=== PATIENT | female | born 1980 | race Caucasian/White ===

== ENCOUNTER 2016-09-23 18:18 | Emergency (ER) | payer OTHER ==
[2016-09-23] MEDS ORDERED: ONDANSETRON 4MG/2ML VIAL (J2405) As Ordered ONE (20:22)
[2016-09-23] MEDS ORDERED: MORPHINE 4 MG/ML 1ML SYRINGE As Ordered ONE (20:22)
[2016-09-23 20:31] LABS: BASO % 0.4 % (0.0-1.0); EOS # 0.4 K/mm3 (0.0-0.50); EOS % 3.6 % (0.0-3.0); LARGE UNSTAINED CELL # 0.2 K/mm3 (0.0-0.4); LARGE UNSTAINED CELL % 1.8 % (0.0-4.0); LYMPH # 2.5 K/mm3 (1.5-4.5); LYMPH % 25.4 % (24.0-44.0); MEAN CORPUSCULAR HEMOGLOBIN 29.6 pg (27.0-33.0); MEAN CORPUSCULAR HGB CONC 34.1 g/dl (32.0-36.5); MEAN CORPUSCULAR VOLUME 86.6 fl (80.0-96.0); MONO # 0.5 K/mm3 (0.0-0.8); MONO % 4.9 % (0.0-5.0); NEUTROPHILS # 6.3 K/mm3 (1.8-7.7); PLATELET COUNT, AUTOMATED 193 k/mm3 (150-450); RED CELL DISTRIBUTION WIDTH 12.2 % (11.5-14.5); WHITE BLOOD COUNT 9.8 K/mm3 (4.0-10.0)
[2016-09-23] MEDS ORDERED: ISOVUE-370 76% 100ML VIAL (Q9967) As Ordered ONE (20:45)
[2016-09-23 20:49] LABS: ANION GAP 8 MEQ/L (8-16); BLOOD UREA NITROGEN 11 MG/DL (7-18); CALCIUM LEVEL 8.5 MG/DL (8.5-10.1); CARBON DIOXIDE LEVEL 27 MEQ/L (21-32); CHLORIDE LEVEL 106 MEQ/L (98-107); CREATININE FOR GFR 0.67 MG/DL (0.55-1.02); GLOMERULAR FILTRATION RATE > 60.0 (>60); GLUCOSE, FASTING 97 MG/DL (70-105); POTASSIUM SERUM 3.8 MEQ/L (3.5-5.1); SODIUM LEVEL 141 MEQ/L (136-145)
[2016-09-23 20:59] LABS: CALCIUM OXALATE CRYSTALS MODERATE
[2016-09-23] MEDS ORDERED: NORCO 5/325MG TABLET (BULK) As Ordered ONE (23:35)
--- NOTE | 2016-09-23 23:44 | EDDOCDS ---
Physician Documentation [facility] Name: Malini Javier Age: 35 yrs Sex: Female : 1980 Arrival Date: 09/23/2016 Time: 18:18 Bed I3 / M3 Private MD: CAIN Santana Disposition: 09/23/16 23:31 Discharged to Home/Self Care. Impression: Contusion of thorax, Contusion of abdominal wall, Contusion of right thigh. - Condition is Stable. - Discharge Instructions: Contusion. - Prescriptions for Ibuprofen 600 mg Oral Tablet - take 1 tablet by ORAL route every 6 hours As needed take with food; 30 tablet. Lee 5- 325 mg Oral Tablet - take 1 tablet by ORAL route every 6 hours As needed MDD: 4 tabs; 16 tablet. Robaxin 500 mg Oral Tablet - take 2 tablet by ORAL route every 6 hours As needed; 40 tablet. - Work Release Form - 5 day, Medication Reconciliation, Local Pharmacy Hours form. - Follow up: CAIN Santana; When: 1 - 2 days; Reason: Recheck today's complaints, Continuance of care. - Problem is new. - Symptoms have improved. - Notes: PLEASE RETURN TO THE ER IF THE SYMPTOMS WORSEN OR BECOME CONCERNING, FOLLOW UP WITH YOUR DOCTOR IN 1-2 DAYS, USE MEDICATIONS INSTRUCTED Historical: - Allergies: no known allergies; - Home Meds: 1. none - PMHx: Supraventricular Tachycardia; - PSHx: internal defibrillator; right ankle surgery; Ureteral Stents; Uereteral stone extractions, ESWL; - Social history: Smoking status: Patient states was never smoker of tobacco. No barriers to communication noted, The patient speaks fluent Prydeinig. - Family history: Not pertinent. - : The pt / caregiver states he / she is not on anticoagulants. Home medication list is obtained from the patient. - Exposure Risk Screening:: None identified. 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 10 in. (177.80 cm) (R); 21:16 BP 118 / 73; Pulse 84; Resp 18; Temp 97.8; Pulse Ox 100% ; Pain 1/10; jlm 23:36 BP 115 / 68; Pulse 88; Resp 18; Temp 98.4; Pulse Ox 99% ; Pain 2/10; jlm 18:20 Body Mass Index 34.01 (107.50 kg, 177.80 cm) rs3 MDM: 20:10 IV Saline Lock ordered. ck7 20:11 morphine 4 mg IVP once ordered. ck7 20:11 Ondansetron 4 mg IVP once ordered. ck7 20:11 NS 0.9% 1000 ml IV at bolus once ordered. ck7 20:12 CBC with Diff Ordered. EDMS 20:12 MED Profile Ordered. EDMS 20:12 UA Ordered. EDMS 20:12 CT Chest With Contrast Ordered. EDMS 20:12 CT ABD & PELVIS: IV Contrast Only Ordered. EDMS 20:13 Femur Ordered. EDMS 20:22 Financial registration complete. zo 20:26 [facility] Payment Agreement was scanned into [employer] and attached to record. zo 20:47 CBC with Diff Reviewed. ck7 20:52 MED Profile Reviewed. ck7 21:22 UA Reviewed. ck7 23:32 HYDROcodone-acetaminophen 4 pack- 5 mg-325 mg 1 packets PO Per package directions; ck7 Dispense with patient. 1 po q4h prn for pain ordered. Administered Medications: 20:34 Drug: NS 0.9% 1000 ml [sodium chloride 0.9 % intravenous solution] Route: IV; Rate: ms2 bolus; Site: left antecubital; 23:43 Follow up: IV Status: Completed infusion slm 20:45 Drug: morphine 4 mg [morphine 4 mg/mL intravenous cartridge (1 mL)] Route: IVP; Site: ms18 left antecubital; 20:45 Drug: Ondansetron 4 mg Route: IVP; Site: left antecubital; ms18 23:42 Drug: HYDROcodone-acetaminophen 4 pack- 1 packets [hydrocodone 5 mg-acetaminophen 325 slm mg tablet (1 tabs)] {Co-Signature: lf1 (Lakeshia Stein RN).} Route: PO; Signatures: Dispatcher MedHost EDMS Connie Carrillo Rosemary, RN RN rs3 Jose Santana, RPA-C RPA-Cck7 Cecilia Barber LPN ANNEALING FURNACE OPERATOR slm Soham Oconnor RN ms2 Pavithra Vang RN ms18 Lakeshia Stein RN lf1 The chart was reviewed and I authenticate all verbal orders and agree with the evaluation and treatment provided.Attachments: 20:26 COUNT INCLUDES THE [facility] Payment Agreement zo MTDD
--- NOTE | 2016-09-23 23:44 | EDDOCDS ---
Nurse's Notes [facility] Name: Malini Javier Age: 35 yrs Sex: Female : 1980 Arrival Date: 09/23/2016 Time: 18:18 Bed I3 / M3 Private MD: CAIN Santana Diagnosis: Contusion of thorax;Contusion of abdominal wall;Contusion of right thigh Presentation: 09/23 18:22 Presenting complaint: Patient states: got kicked by horse right side. reports of pain rs3 on right flank and right leg. Adult Sepsis Screening: The patient does not have new or worsening altered mentation. Patient's respiratory rate is less than 22. Systolic blood pressure is greater than 100. Patient has a qSOFA score of 0- Negative Sepsis Screen. Suicide/Homicide risk assessment- the patient denies having any suicidal and/or homicidal ideations and does not present with any other emotional, behavioral or mental health complaints. Status: Patient is not a director financial services or dependent. Transition of care: patient was not received from another setting of care. 18:22 Acuity: SADIQ Level 4 rs3 18:22 Method Of Arrival: Walkin/Carried/Asstd rs3 Triage Assessment: 18:24 General: Appears in no apparent distress. Pain: Location: posterior aspect of right rs3 lateral abdomen and anterior aspect of right lateral abdomen. Pt Declines HIV testing. 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 none - PMHx: Supraventricular Tachycardia; - PSHx: internal defibrillator; right ankle surgery; Ureteral Stents; Uereteral stone extractions, ESWL; - Social history: Smoking status: Patient states was never smoker of tobacco. No barriers to communication noted, The patient speaks fluent Sinhala. - Family history: Not pertinent. - : The pt / caregiver states he / she is not on anticoagulants. Home medication list is obtained from the patient. - Exposure Risk Screening:: None identified. Screenin:01 Screening information is obtained from the patient. Fall risk: No risks identified. ms2 Assistance ADL's: requires no assistance with activities of daily living. Abuse/DV Screen: The patient / caregiver reports he/she is: not in a situation that causes fear, pain or injury. Nutritional screening: No deficits noted. Advance Directives: Currently, there is no health care proxy. There is no active DNR order. There is no living will. There is no Power of Butter Liquefier. Advance directive information has not previously been placed in an [facility] medical record. Further advance directive information is declined. home support is adequate. Assessment: 20:10 Adult Sepsis Screening: Patient's respiratory rate is less than 22. Systolic blood ms2 pressure is greater than 100. Patient has a qSOFA score of 0- Negative Sepsis Screen. General: Appears in no apparent distress. Neurological: Level of Consciousness is awake, alert, obeys commands. Respiratory: No deficits noted. Airway is patent Respiratory effort is even, unlabored, Respiratory pattern is regular, symmetrical. GI: Abdomen is non- distended obese. Derm: Skin is pink, warm & dry. Musculoskeletal: Range of motion intact in all extremities. 22:01 Adult Sepsis Screening: The patient does not have new or worsening altered mentation. ms2 Patient's respiratory rate is less than 22. Systolic blood pressure is greater than 100. Patient has a qSOFA score of 0- Negative Sepsis Screen. General: Appears. Pain: Pain currently is 1 out of 10 on a pain scale. Neurological: No deficits noted. Respiratory: No deficits noted. Derm: Skin is pink, warm & dry. 23:42 Reassessment: Patient appears in no apparent distress at this time. Patient states slm symptoms have improved. Vital Signs: 18:20 BP 143 / 77; Pulse 101; Resp 18 S; Temp 99(T); Pulse Ox 100% on R/A; Weight 107.5 kg rs3 (R); Height 5 ft. 10 in. (177.80 cm) (R); 21:16 BP 118 / 73; Pulse 84; Resp 18; Temp 97.8; Pulse Ox 100% ; Pain 1/10; jlm 23:36 BP 115 / 68; Pulse 88; Resp 18; Temp 98.4; Pulse Ox 99% ; Pain 2/10; jlm 18:20 Body Mass Index 34.01 (107.50 kg, 177.80 cm) rs3 Vitals: 18:20 Log In Time: September 23, 2016 at 18:18. dd6 ED Course: 18:19 Patient visited by Logan Herndon PCA. dd6 18:19 CAIN Santana is Private Physician. dd6 18:19 Patient moved to Waiting dd6 18:21 Patient moved to Pre RCE dd6 18:24 Triage Initiated rs3 19:32 Patient moved to Triage 1 ar3 20:03 Jose Santana RPA-C is PHCP. ck7 20:03 Nikko Fairbanks DO is Attending Physician. ck7 20:03 Patient visited by Jose Santana RPA-C. ck7 20:08 Patient moved to I3 / M3 ar3 20:10 Inserted saline lock: 20 gauge in left antecubital area and blood collected. ms2 20:24 MED Profile Sent. ms2 20:24 CBC with Diff Sent. ms2 20:26 [facility] Payment Agreement was scanned into [employer] and attached to record. zo 20:29 Patient name changed from Malini\S\\S\Esplin\S\ to Malini\S\ \S\Esplin. EDMS 20:38 Patient visited by Jose Santana RPA-C. ck7 20:45 UA Sent. ms18 21:16 Patient visited by Chloe Brennan, Director Emergency. jlm 21:59 Patient visited by Jose Santana RPA-C. ck7 22:02 The patient / caregiver is instructed regarding the plan of care and ED course. ms2 22:02 IV is intact, is free of redness or swelling. No procedures done that require ms2 assistance. 22:31 Patient visited by Chloe Brennan Director Emergency. jlm 22:31 Warm blanket given. jlm 23:02 Patient visited by Jose Santana RPA-C. ck7 23:28 CAIN Santana is Referral Physician. ck7 23:36 Patient visited by Chloe Brennan Director Emergency. jlm 23:41 Cecilia Barber LPN is Primary Nurse. slm 23:43 Discontinued lock intact, bleeding controlled, pressure dressing applied, No slm redness/swelling at site. Administered Medications: 20:34 Drug: NS 0.9% 1000 ml [sodium chloride 0.9 % intravenous solution] Route: IV; Rate: ms2 bolus; Site: left antecubital; 23:43 Follow up: IV Status: Completed infusion slm 20:45 Drug: morphine 4 mg [morphine 4 mg/mL intravenous cartridge (1 mL)] Route: IVP; Site: ms18 left antecubital; 20:45 Drug: Ondansetron 4 mg Route: IVP; Site: left antecubital; ms18 23:42 Drug: HYDROcodone-acetaminophen 4 pack- 1 packets [hydrocodone 5 mg-acetaminophen 325 slm mg tablet (1 tabs)] {Co-Signature: lf1 (Lakeshia Stein RN).} Route: PO; Intake: 22:01 IV: 1000.00ml (NS); Total: 1000.00ml. ms2 Order Results: Lab Order: CBC with Diff; SPEC'M 09/23/16 20:20 Test: WHITE BLOOD COUNT; Value: 9.8; Range: 4.0-10.0; Units: K/mm3; Status: F Test: RED BLOOD COUNT; Value: 4.82; Range: 4.00-5.40; Units: M/mm3; Status: F Test: HEMOGLOBIN; Value: 14.2; Range: 12.0-16.0; Units: g/dl; Status: F Test: HEMATOCRIT; Value: 41.7; Range: 36.0-47.0; Units: %; Status: F Test: MEAN CORPUSCULAR VOLUME; Value: 86.6; Range: 80.0-96.0; Units: fl; Status: F Test: MEAN CORPUSCULAR HEMOGLOBIN; Value: 29.6; Range: 27.0-33.0; Units: pg; Status: F Test: MEAN CORPUSCULAR HGB CONC; Value: 34.1; Range: 32.0-36.5; Units: g/dl; Status: F Test: RED CELL DISTRIBUTION WIDTH; Value: 12.2; Range: 11.5-14.5; Units: %; Status: F Test: PLATELET COUNT, AUTOMATED; Value: 193; Range: 150-450; Units: k/mm3; Status: F Test: NEUTROPHILS %; Value: 64.0; Range: 36.0-66.0; Units: %; Status: F Test: LYMPH %; Value: 25.4; Range: 24.0-44.0; Units: %; Status: F Test: MONO %; Value: 4.9; Range: 0.0-5.0; Units: %; Status: F Test: EOS %; Value: 3.6; Range: 0.0-3.0; Abnormal: Above high normal; Units: %; Status: F Test: BASO %; Value: 0.4; Range: 0.0-1.0; Units: %; Status: F Test: LARGE UNSTAINED CELL %; Value: 1.8; Range: 0.0-4.0; Units: %; Status: F Test: NEUTROPHILS #; Value: 6.3; Range: 1.8-7.7; Units: K/mm3; Status: F Test: LYMPH #; Value: 2.5; Range: 1.5-4.5; Units: K/mm3; Status: F Test: MONO #; Value: 0.5; Range: 0.0-0.8; Units: K/mm3; Status: F Test: EOS #; Value: 0.4; Range: 0.0-0.50; Units: K/mm3; Status: F Test: BASO #; Value: 0.0; Range: 0.0-0.2; Units: K/mm3; Status: F Test: LARGE UNSTAINED CELL #; Value: 0.2; Range: 0.0-0.4; Units: K/mm3; Status: F Lab Order: MED Profile; SPEC'M 09/23/16 20:20 Test: GLUCOSE, FASTING; Value: 97; Range: 70-105; Units: MG/DL; Status: F Test: BLOOD UREA NITROGEN; Value: 11; Range: 7-18; Units: MG/DL; Status: F Test: CREATININE FOR GFR; Value: 0.67; Range: 0.55-1.02; Units: MG/DL; Status: F Test: GLOMERULAR FILTRATION RATE; Value: > 60.0; Range: >60; Status: F Test: SODIUM LEVEL; Value: 141; Range: 136-145; Units: MEQ/L; Status: F Test: POTASSIUM SERUM; Value: 3.8; Range: 3.5-5.1; Units: MEQ/L; Status: F Test: CHLORIDE LEVEL; Value: 106; Range: 98-107; Units: MEQ/L; Status: F Test: CARBON DIOXIDE LEVEL; Value: 27; Range: 21-32; Units: MEQ/L; Status: F Test: ANION GAP; Value: 8; Range: 8-16; Units: MEQ/L; Status: F Test: CALCIUM LEVEL; Value: 8.5; Range: 8.5-10.1; Units: MG/DL; Status: F Test Note: ; Units are mL/min/1.73 m2 Chronic Kidney Disease Staging per NKF: Stage I & II GFR >=60 Normal to Mildly Decreased Stage III GFR 30-59 Moderately Decreased Stage IV GFR 15-29 Severely Decreased Stage V GFR <15 Very Little GFR Left ESRD GFR <15 on ROUSTABOUT SUPERVISOR Lab Order: UA; SPEC'M 09/23/16 20:21 Test: APPEARANCE, URINE; Value: CLEAR; Range: CLEAR; Status: F Test: COLOR, URINE; Value: YELLOW; Range: YELLOW; Status: F Test: PH,URINE; Value: 5.0; Range: 5.0-9.0; Units: UNITS; Status: F Test: SPECIFIC GRAVITY URINE AUTO; Value: 1.026; Range: 1.002-1.035; Status: F Test: PROTEIN, URINE AUTO; Value: NEGATIVE; Range: NEGATIVE; Units: mg/dL; Status: F Test: GLUCOSE, URINE (UA) AUTO; Value: NEGATIVE; Range: NEGATIVE; Units: mg/dL; Status: F Test: KETONE, URINE AUTO; Value: TRACE; Range: NEGATIVE; Abnormal: Above high normal; Units: mg/dL; Status: F Test: UROBILINOGEN, URINE AUTO; Value: 0.2; Range: 0.0-2.0; Units: mg/dL; Status: F Test: BILIRUBIN, URINE AUTO; Value: NEGATIVE; Range: NEGATIVE; Status: F Test: NITRITE, URINE AUTO; Value: NEGATIVE; Range: NEGATIVE; Status: F Test: LEUKOCYTE ESTERASE, URINE AUTO; Value: NEGATIVE; Range: NEGATIVE; Status: F Test: BLOOD, URINE BLOOD; Value: NEGATIVE; Range: NEGATIVE; Status: F Test: WBC, URINE AUTO; Value: 2; Range: 0-3; Units: /HPF; Status: F Test: RBC, URINE AUTO; Value: 3; Range: 0-3; Units: /HPF; Status: F Test: BACTERIA, URINE AUTO; Value: 1+; Range: NEGATIVE; Abnormal: Above high normal; Status: F Test: SQUAMOUS EPITHELIAL CELL UR AU; Value: 4; Range: 0-6; Units: /HPF; Status: F Test: MUCUS, URINE; Value: SMALL; Range: NEGATIVE; Status: F Test: HYALINE CAST, URINE AUTO; Value: 0; Range: 0-1; Units: /LPF; Status: F Test: CALCIUM OXALATE CRYSTALS; Value: MODERATE; Range: NONE; Status: F Outcome: 23:31 Discharge ordered by Provider. ck7 23:41 Discharge Assessment: Patient awake, alert and oriented x 3. No cognitive and/or slm functional deficits noted. Patient verbalized understanding of disposition instructions. Patient awake and alert. patient administered narcotics - yes. Pt provided with safe discharge. The following High Risk Discharge criteria are identified: None. Discharged to home ambulatory. Condition: good Condition: improved. Discharge instructions given to patient, Instructed on discharge instructions, follow up and referral plans. medication usage, no driving heavy equipment, Demonstrated understanding of instructions, medications, Pt was receptive of discharge instructions/ teaching. Prescriptions given X 3. CT Study completed. Property :Personal belongings accompany Pt. 23:43 Patient left the ED. slm Signatures: Dispatcher MedHost EDMS Soham Oconnor RN RN ms2 Connie Carrillo Daniell, FACTORY HELPER FACTORY HELPER dd6 Stefani Leung RN RN rs3 Maria Teresa Del Castillo, FACTORY HELPER FACTORY HELPER ar3 Jose Santana, RPA-C RPA-Cck7 Cecilia Barber,MANAGEMENT SPECIALIST MANAGEMENT SPECIALIST slm Chloe Brennan, Director Emergency Unit Pavithra Carpio RN RN ms18 Lakeshia Stein RN lf1 Corrections: (The following items were deleted from the chart) 18:26 18:20 BP 143 / 77; Pulse 101bpm; Resp 18bpm; Spontaneous; Pulse Ox 100% RA; 107.5 kg rs3 Reported; Height 5 ft. 10 in. Reported; BMI: 34.0; dd6 MTDD
--- NOTE | 2016-09-24 02:41 | REP ---
Clinical: Deformity and swelling. Technique: AP and lateral views of the right femur. Findings: Age-related changes noted at the hip and knee joint. No acute fracture or dislocation. No subcutaneous emphysema or radiodense foreign body. Impression: Age-related changes. No acute fracture or dislocation. Signed by Franco Sky MD 09/24/2016 02:33 A
--- NOTE | 2016-09-24 07:58 | REPUSA ---
CLINICAL HISTORY: Trauma. TECHNIQUE: Multiple axial CT images were obtained through the abdomen and pelvis after administratio n of intravenous contrast material. Oral contrast was not administered. COMMENTS: The liver is of uniform attenuation without mass or defect. There is no intra or extrahepatic biliar y ductal dilatation. The spleen is normal. The gallbladder is within normal limits. The pancreas i s of normal contour and attenuation characteristics. There is no evidence of adrenal mass. Both kidneys demonstrate prompt and equal nephrograms. The kidneys are normal in size, shape and con figuration. There is no evidence of renal or ureteral mass. No renal or ureteral calculi are identi fied. There is no hydroureter or hydronephrosis. No evidence for appendicitis. Circumferential wall thickening is noted involving duodenum as well as loops of jejunum and ileum compatible with enteritis. No evidence for small or large bowel obstruct ion. There is no evidence of abdominal ascites or lymphadenopathy. There is no evidence of intrinsic or extrinsic bladder mass. There is no pelvic ascites or lymphaden opathy. IUD is in place. A 2 cm left ovarian cyst is seen. The right ovary is unremarkable. Images of the lung bases show no evidence of pleural or parenchymal mass. There are no pleural effus ions. No fracture is noted. There is grade 1 anterolisthesis of L5 over S1 due to bilateral spondyl olysis. Consider correlation with dedicated CT or MRI on a routine basis. No acute fracture is seen . Small hiatal hernia is seen. The stomach is distended. IMPRESSION: 1. Circumferential wall thickening is noted involving duodenum as well as loops of jejunum and ileum compatible with enteritis. 2. Small hiatal hernia is seen. 3. A 2 cm left ovarian cyst is seen. 4. There is grade 1 anterolisthesis of L5 over S1 due to bilateral spondylolysis. Thank you for your kind referral of this patient. We appreciate the opportunity to participate in thi s patient's care.
--- NOTE | 2016-09-26 00:44 | EDDOCDS ---
Physician Documentation [facility] Name: Malini Javier Age: 35 yrs Sex: Female : 1980 Arrival Date: 09/23/2016 Time: 18:18 Bed I3 / M3 Private MD: CAIN Santana Disposition: 09/23/16 23:31 Discharged to Home/Self Care. Impression: Contusion of thorax, Contusion of abdominal wall, Contusion of right thigh. - Condition is Stable. - Discharge Instructions: Contusion. - Prescriptions for Ibuprofen 600 mg Oral Tablet - take 1 tablet by ORAL route every 6 hours As needed take with food; 30 tablet. Harrell 5- 325 mg Oral Tablet - take 1 tablet by ORAL route every 6 hours As needed MDD: 4 tabs; 16 tablet. Robaxin 500 mg Oral Tablet - take 2 tablet by ORAL route every 6 hours As needed; 40 tablet. - Work Release Form - 5 day, Medication Reconciliation, Local Pharmacy Hours form. - Follow up: CAIN Santana; When: 1 - 2 days; Reason: Recheck today's complaints, Continuance of care. - Problem is new. - Symptoms have improved. - Notes: PLEASE RETURN TO THE ER IF THE SYMPTOMS WORSEN OR BECOME CONCERNING, FOLLOW UP WITH YOUR DOCTOR IN 1-2 DAYS, USE MEDICATIONS INSTRUCTED Historical: - Allergies: no known allergies; - Home Meds: 1. none - PMHx: Supraventricular Tachycardia; - PSHx: internal defibrillator; right ankle surgery; Ureteral Stents; Uereteral stone extractions, ESWL; - Social history: Smoking status: Patient states was never smoker of tobacco. No barriers to communication noted, The patient speaks fluent British. - Family history: Not pertinent. - : The pt / caregiver states he / she is not on anticoagulants. Home medication list is obtained from the patient. - Exposure Risk Screening:: None identified. 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 10 in. (177.80 cm) (R); 21:16 BP 118 / 73; Pulse 84; Resp 18; Temp 97.8; Pulse Ox 100% ; Pain 1/10; jlm 23:36 BP 115 / 68; Pulse 88; Resp 18; Temp 98.4; Pulse Ox 99% ; Pain 2/10; jlm 18:20 Body Mass Index 34.01 (107.50 kg, 177.80 cm) rs3 MDM: 20:10 IV Saline Lock ordered. ck7 20:11 morphine 4 mg IVP once ordered. ck7 20:11 Ondansetron 4 mg IVP once ordered. ck7 20:11 NS 0.9% 1000 ml IV at bolus once ordered. ck7 20:12 CBC with Diff Ordered. EDMS 20:12 MED Profile Ordered. EDMS 20:12 UA Ordered. EDMS 20:12 CT Chest With Contrast Ordered. EDMS 20:12 CT ABD & PELVIS: IV Contrast Only Ordered. EDMS 20:13 Femur Ordered. EDMS 20:22 Financial registration complete. zo 20:26 [facility] Payment Agreement was scanned into [employer] and attached to record. zo 20:47 CBC with Diff Reviewed. ck7 20:52 MED Profile Reviewed. ck7 21:22 UA Reviewed. ck7 23:32 HYDROcodone-acetaminophen 4 pack- 5 mg-325 mg 1 packets PO Per package directions; ck7 Dispense with patient. 1 po q4h prn for pain ordered. 09/24 11:27 T-Sheet-- Draft Copy was scanned into [employer] and attached to record. gb 09/25 20:20 ED course: ft drum fp faxed formal report of ct abd/p for fu mlg. ml Administered Medications: 09/23 20:34 Drug: NS 0.9% 1000 ml [sodium chloride 0.9 % intravenous solution] Route: IV; Rate: ms2 bolus; Site: left antecubital; 23:43 Follow up: IV Status: Completed infusion slm 20:45 Drug: morphine 4 mg [morphine 4 mg/mL intravenous cartridge (1 mL)] Route: IVP; Site: ms18 left antecubital; 20:45 Drug: Ondansetron 4 mg Route: IVP; Site: left antecubital; ms18 23:42 Drug: HYDROcodone-acetaminophen 4 pack- 1 packets [hydrocodone 5 mg-acetaminophen 325 slm mg tablet (1 tabs)] {Co-Signature: lf1 (Lakeshia Stein RN).} Route: PO; Signatures: Dispatcher MedHost EDMS Nina Sanchez MD MD ml Barnhardt, Gloria, Connie De La Cruz Rosemary,RN RN rs3 Jose Santana, RPA-C RPA-Cck7 Cecilia Barber LPN LPN slm Sobkiewicz, Michele RN ms2 Pavithra Vang RN ms18 Lakeshia Stein RN lf1 The chart was reviewed and I authenticate all verbal orders and agree with the evaluation and treatment provided.Attachments: 20:26 [facility] Payment Agreement zo 09/24 11:27 T-Sheet-- Draft Copy gb Chart Complete MTDD
--- NOTE | 2016-09-26 00:44 | EDDOCDS ---
Nurse's Notes [facility] Name: Malini Javier Age: 35 yrs Sex: Female : 1980 Arrival Date: 09/23/2016 Time: 18:18 Bed I3 / M3 Private MD: CAIN Santana Diagnosis: Contusion of thorax;Contusion of abdominal wall;Contusion of right thigh Presentation: 09/23 18:22 Presenting complaint: Patient states: got kicked by horse right side. reports of pain rs3 on right flank and right leg. Adult Sepsis Screening: The patient does not have new or worsening altered mentation. Patient's respiratory rate is less than 22. Systolic blood pressure is greater than 100. Patient has a qSOFA score of 0- Negative Sepsis Screen. Suicide/Homicide risk assessment- the patient denies having any suicidal and/or homicidal ideations and does not present with any other emotional, behavioral or mental health complaints. Status: Patient is not a extension service specialist in charge or dependent. Transition of care: patient was not received from another setting of care. 18:22 Acuity: SADIQ Level 4 rs3 18:22 Method Of Arrival: Walkin/Carried/Asstd rs3 Triage Assessment: 18:24 General: Appears in no apparent distress. Pain: Location: posterior aspect of right rs3 lateral abdomen and anterior aspect of right lateral abdomen. Pt Declines HIV testing. [employer] WE[employer]HER: 18:24 LMP N/A - control method rs3 Historical: - Allergies: no known allergies; - Home Meds: 1. none - PMHx: Supraventricular Tachycardia; - PSHx: internal defibrillator; right ankle surgery; Ureteral Stents; Uereteral stone extractions, ESWL; - Social history: Smoking status: Patient states was never smoker of tobacco. No barriers to communication noted, The patient speaks fluent Irish. - Family history: Not pertinent. - : The pt / caregiver states he / she is not on anticoagulants. Home medication list is obtained from the patient. - Exposure Risk Screening:: None identified. Screenin:01 Screening information is obtained from the patient. Fall risk: No risks identified. ms2 Assistance ADL's: requires no assistance with activities of daily living. Abuse/DV Screen: The patient / caregiver reports he/she is: not in a situation that causes fear, pain or injury. Nutritional screening: No deficits noted. Advance Directives: Currently, there is no health care proxy. There is no active DNR order. There is no living will. There is no Power of Solar Electric Installer. Advance directive information has not previously been placed in an [facility] medical record. Further advance directive information is declined. home support is adequate. Assessment: 20:10 Adult Sepsis Screening: Patient's respiratory rate is less than 22. Systolic blood ms2 pressure is greater than 100. Patient has a qSOFA score of 0- Negative Sepsis Screen. General: Appears in no apparent distress. Neurological: Level of Consciousness is awake, alert, obeys commands. Respiratory: No deficits noted. Airway is patent Respiratory effort is even, unlabored, Respiratory pattern is regular, symmetrical. GI: Abdomen is non- distended obese. Derm: Skin is pink, warm & dry. Musculoskeletal: Range of motion intact in all extremities. 22:01 Adult Sepsis Screening: The patient does not have new or worsening altered mentation. ms2 Patient's respiratory rate is less than 22. Systolic blood pressure is greater than 100. Patient has a qSOFA score of 0- Negative Sepsis Screen. General: Appears. Pain: Pain currently is 1 out of 10 on a pain scale. Neurological: No deficits noted. Respiratory: No deficits noted. Derm: Skin is pink, warm & dry. 23:42 Reassessment: Patient appears in no apparent distress at this time. Patient states slm symptoms have improved. Vital Signs: 18:20 BP 143 / 77; Pulse 101; Resp 18 S; Temp 99(T); Pulse Ox 100% on R/A; Weight 107.5 kg rs3 (R); Height 5 ft. 10 in. (177.80 cm) (R); 21:16 BP 118 / 73; Pulse 84; Resp 18; Temp 97.8; Pulse Ox 100% ; Pain 1/10; jlm 23:36 BP 115 / 68; Pulse 88; Resp 18; Temp 98.4; Pulse Ox 99% ; Pain 2/10; jlm 18:20 Body Mass Index 34.01 (107.50 kg, 177.80 cm) rs3 Vitals: 18:20 Log In Time: September 23, 2016 at 18:18. dd6 ED Course: 18:19 Patient visited by Logan Herndon PCA. dd6 18:19 CAIN Santana is Private Physician. dd6 18:19 Patient moved to Waiting dd6 18:21 Patient moved to Pre RCE dd6 18:24 Triage Initiated rs3 19:32 Patient moved to Triage 1 ar3 20:03 Jose Santana RPA-C is PHCP. ck7 20:03 Nikko Fairbanks DO is Attending Physician. ck7 20:03 Patient visited by Jose Satnana RPA-C. ck7 20:08 Patient moved to I3 / M3 ar3 20:10 Inserted saline lock: 20 gauge in left antecubital area and blood collected. ms2 20:24 MED Profile Sent. ms2 20:24 CBC with Diff Sent. ms2 20:26 [facility] [place] Agreement was scanned into [employer] and attached to record. zo 20:29 Patient name changed from Malini\S\\S\Esplin\S\ to Malini\S\ \S\Esplin. EDMS 20:38 Patient visited by Jose Santana RPA-C. ck7 20:45 UA Sent. ms18 21:16 Patient visited by Chloe Brennan, Carbon Capture Power Plant Operator. jlm 21:59 Patient visited by Jose Santana RPA-C. ck7 22:02 The patient / caregiver is instructed regarding the plan of care and ED course. ms2 22:02 IV is intact, is free of redness or swelling. No procedures done that require ms2 assistance. 22:31 Patient visited by Chloe Brennan Carbon Capture Power Plant Operator. jlm 22:31 Warm blanket given. jlm 23:02 Patient visited by Jose Santana RPA-C. ck7 23:28 EDUARDO Santana is Referral Physician. ck7 23:36 Patient visited by Chloe Brennan Carbon Capture Power Plant Operator. jlm 23:41 Cecilia Barber LPN is Primary Nurse. slm 23:43 Discontinued lock intact, bleeding controlled, pressure dressing applied, No slm redness/swelling at site. 09/24 02:48 Femur Returned. EDMS 08:30 CT Chest With Contrast Returned. EDMS 08:30 CT ABD & PELVIS: IV Contrast Only Returned. EDMS 11:27 T-Sheet-- Draft Copy was scanned into [employer] and attached to record. gb Administered Medications: 09/23 20:34 Drug: NS 0.9% 1000 ml [sodium chloride 0.9 % intravenous solution] Route: IV; Rate: ms2 bolus; Site: left antecubital; 23:43 Follow up: IV Status: Completed infusion slm 20:45 Drug: morphine 4 mg [morphine 4 mg/mL intravenous cartridge (1 mL)] Route: IVP; Site: ms18 left antecubital; 20:45 Drug: Ondansetron 4 mg Route: IVP; Site: left antecubital; ms18 23:42 Drug: HYDROcodone-acetaminophen 4 pack- 1 packets [hydrocodone 5 mg-acetaminophen 325 slm mg tablet (1 tabs)] {Co-Signature: lf1 (Lakeshia Stein RN).} Route: PO; Intake: 22:01 IV: 1000.00ml (NS); Total: 1000.00ml. ms2 Order Results: Lab Order: CBC with Diff; SPEC'M 09/23/16 20:20 Test: WHITE BLOOD COUNT; Value: 9.8; Range: 4.0-10.0; Units: K/mm3; Status: F Test: RED BLOOD COUNT; Value: 4.82; Range: 4.00-5.40; Units: M/mm3; Status: F Test: HEMOGLOBIN; Value: 14.2; Range: 12.0-16.0; Units: g/dl; Status: F Test: HEMATOCRIT; Value: 41.7; Range: 36.0-47.0; Units: %; Status: F Test: MEAN CORPUSCULAR VOLUME; Value: 86.6; Range: 80.0-96.0; Units: fl; Status: F Test: MEAN CORPUSCULAR HEMOGLOBIN; Value: 29.6; Range: 27.0-33.0; Units: pg; Status: F Test: MEAN CORPUSCULAR HGB CONC; Value: 34.1; Range: 32.0-36.5; Units: g/dl; Status: F Test: RED CELL DISTRIBUTION WIDTH; Value: 12.2; Range: 11.5-14.5; Units: %; Status: F Test: PLATELET COUNT, AUTOMATED; Value: 193; Range: 150-450; Units: k/mm3; Status: F Test: NEUTROPHILS %; Value: 64.0; Range: 36.0-66.0; Units: %; Status: F Test: LYMPH %; Value: 25.4; Range: 24.0-44.0; Units: %; Status: F Test: MONO %; Value: 4.9; Range: 0.0-5.0; Units: %; Status: F Test: EOS %; Value: 3.6; Range: 0.0-3.0; Abnormal: Above high normal; Units: %; Status: F Test: BASO %; Value: 0.4; Range: 0.0-1.0; Units: %; Status: F Test: LARGE UNSTAINED CELL %; Value: 1.8; Range: 0.0-4.0; Units: %; Status: F Test: NEUTROPHILS #; Value: 6.3; Range: 1.8-7.7; Units: K/mm3; Status: F Test: LYMPH #; Value: 2.5; Range: 1.5-4.5; Units: K/mm3; Status: F Test: MONO #; Value: 0.5; Range: 0.0-0.8; Units: K/mm3; Status: F Test: EOS #; Value: 0.4; Range: 0.0-0.50; Units: K/mm3; Status: F Test: BASO #; Value: 0.0; Range: 0.0-0.2; Units: K/mm3; Status: F Test: LARGE UNSTAINED CELL #; Value: 0.2; Range: 0.0-0.4; Units: K/mm3; Status: F Lab Order: MED Profile; SPEC'M 09/23/16 20:20 Test: GLUCOSE, FASTING; Value: 97; Range: 70-105; Units: MG/DL; Status: F Test: BLOOD UREA NITROGEN; Value: 11; Range: 7-18; Units: MG/DL; Status: F Test: CREATININE FOR GFR; Value: 0.67; Range: 0.55-1.02; Units: MG/DL; Status: F Test: GLOMERULAR FILTRATION RATE; Value: > 60.0; Range: >60; Status: F Test: SODIUM LEVEL; Value: 141; Range: 136-145; Units: MEQ/L; Status: F Test: POTASSIUM SERUM; Value: 3.8; Range: 3.5-5.1; Units: MEQ/L; Status: F Test: CHLORIDE LEVEL; Value: 106; Range: 98-107; Units: MEQ/L; Status: F Test: CARBON DIOXIDE LEVEL; Value: 27; Range: 21-32; Units: MEQ/L; Status: F Test: ANION GAP; Value: 8; Range: 8-16; Units: MEQ/L; Status: F Test: CALCIUM LEVEL; Value: 8.5; Range: 8.5-10.1; Units: MG/DL; Status: F Test Note: ; Units are mL/min/1.73 m2 Chronic Kidney Disease Staging per NKF: Stage I & II GFR >=60 Normal to Mildly Decreased Stage III GFR 30-59 Moderately Decreased Stage IV GFR 15-29 Severely Decreased Stage V GFR <15 Very Little GFR Left ESRD GFR <15 on NUTRITION AND DIETETICS INSTRUCTOR Lab Order: UA; SPEC'M 09/23/16 20:21 Test: APPEARANCE, URINE; Value: CLEAR; Range: CLEAR; Status: F Test: COLOR, URINE; Value: YELLOW; Range: YELLOW; Status: F Test: PH,URINE; Value: 5.0; Range: 5.0-9.0; Units: UNITS; Status: F Test: SPECIFIC GRAVITY URINE AUTO; Value: 1.026; Range: 1.002-1.035; Status: F Test: PROTEIN, URINE AUTO; Value: NEGATIVE; Range: NEGATIVE; Units: mg/dL; Status: F Test: GLUCOSE, URINE (UA) AUTO; Value: NEGATIVE; Range: NEGATIVE; Units: mg/dL; Status: F Test: KETONE, URINE AUTO; Value: TRACE; Range: NEGATIVE; Abnormal: Above high normal; Units: mg/dL; Status: F Test: UROBILINOGEN, URINE AUTO; Value: 0.2; Range: 0.0-2.0; Units: mg/dL; Status: F Test: BILIRUBIN, URINE AUTO; Value: NEGATIVE; Range: NEGATIVE; Status: F Test: NITRITE, URINE AUTO; Value: NEGATIVE; Range: NEGATIVE; Status: F Test: LEUKOCYTE ESTERASE, URINE AUTO; Value: NEGATIVE; Range: NEGATIVE; Status: F Test: BLOOD, URINE BLOOD; Value: NEGATIVE; Range: NEGATIVE; Status: F Test: WBC, URINE AUTO; Value: 2; Range: 0-3; Units: /HPF; Status: F Test: RBC, URINE AUTO; Value: 3; Range: 0-3; Units: /HPF; Status: F Test: BACTERIA, URINE AUTO; Value: 1+; Range: NEGATIVE; Abnormal: Above high normal; Status: F Test: SQUAMOUS EPITHELIAL CELL UR AU; Value: 4; Range: 0-6; Units: /HPF; Status: F Test: MUCUS, URINE; Value: SMALL; Range: NEGATIVE; Status: F Test: HYALINE CAST, URINE AUTO; Value: 0; Range: 0-1; Units: /LPF; Status: F Test: CALCIUM OXALATE CRYSTALS; Value: MODERATE; Range: NONE; Status: F Radiology Order: CT Chest With Contrast Test: CT Chest With Contrast REASON FOR EXAMINATION: KICKED IN R CHEST BY HORSE, R/O INJURY; ; CLINICAL HISTORY: Trauma; TECHNIQUE: Multiple axial CT images were obtained through chest with IV contrast material. MPR guerrero; l and sagittal sequences were obtained.; COMMENTS:; Dual-lead pacemaker is seen in the left chest wall.; There is no evidence of pleural or parenchymal mass. There are no pleural effusions. There is no evid; ence of hilar or mediastinal lymphadenopathy. The heart and great vessels are within normal limits.; The visualized portions of the liver are of uniform attenuation without mass or defect. There is no i; ntra or extrahepatic biliary ductal dilatation. The spleen is unremarkable. The visualized pancreas i; s of normal contour and attenuation characteristics. There is no evidence of adrenal mass. The visual; ized portions of the kidneys present no abnormalities.; The bony structures are free of lytic or blastic lesions. No fractures noted.; No evidence for abnormal enhancement.; IMPRESSION:; No evidence of acute thoracic pathology.; Thank you for your kind referral of this patient.; ; ; Radiology Order: CT ABD & PELVIS: IV Contrast Only Test: CT ABD & PELVIS: IV Contrast Only REASON FOR EXAMINATION: KICKED IN CHEST/ABD BY HORSE, R/O INJURY; ; CLINICAL HISTORY: Trauma.; ; TECHNIQUE: Multiple axial CT images were obtained through the abdomen and pelvis after administratio; n of intravenous contrast material. Oral contrast was not administered.; ; COMMENTS:; The liver is of uniform attenuation without mass or defect. There is no intra or extrahepatic biliar; y ductal dilatation. The spleen is normal. The gallbladder is within normal limits. The pancreas i; s of normal contour and attenuation characteristics. There is no evidence of adrenal mass.; ; Both kidneys demonstrate prompt and equal nephrograms. The kidneys are normal in size, shape and con; figuration. There is no evidence of renal or ureteral mass. No renal or ureteral calculi are identi; fied. There is no hydroureter or hydronephrosis.; ; No evidence for appendicitis. Circumferential wall thickening is noted involving duodenum as well as; loops of jejunum and ileum compatible with enteritis. No evidence for small or large bowel obstruct; ion. There is no evidence of abdominal ascites or lymphadenopathy.; ; There is no evidence of intrinsic or extrinsic bladder mass. There is no pelvic ascites or lymphaden; opathy. IUD is in place. A 2 cm left ovarian cyst is seen. The right ovary is unremarkable.; ; Images of the lung bases show no evidence of pleural or parenchymal mass. There are no pleural effus; ions. No fracture is noted. There is grade 1 anterolisthesis of L5 over S1 due to bilateral spondyl; olysis. Consider correlation with dedicated CT or MRI on a routine basis. No acute fracture is seen; .; ; Small hiatal hernia is seen. The stomach is distended.; ; ; IMPRESSION:; 1. Circumferential wall thickening is noted involving duodenum as well as loops of jejunum and ileum; compatible with enteritis.; 2. Small hiatal hernia is seen.; 3. A 2 cm left ovarian cyst is seen.; 4. There is grade 1 anterolisthesis of L5 over S1 due to bilateral spondylolysis.; ; ; Thank you for your kind referral of this patient. We appreciate the opportunity to participate in [facility]; s patient's care.; ; Radiology Order: Femur Test: Femur REASON FOR EXAMINATION: Deformity/Swelling; Clinical: Deformity and swelling.; ; Technique: AP and lateral views of the right femur.; ; Findings:; Age-related changes noted at the hip and knee joint. No acute fracture or; dislocation. No subcutaneous emphysema or radiodense foreign body.; ; Impression:; Age-related changes. No acute fracture or dislocation.; ; ; Signed by; Franco Sky MD 09/24/2016 02:33 A; Outcome: 23:31 Discharge ordered by Provider. ck7 23:41 Discharge Assessment: Patient awake, alert and oriented x 3. No cognitive and/or slm functional deficits noted. Patient verbalized understanding of disposition instructions. Patient awake and alert. patient administered narcotics - yes. Pt provided with safe discharge. The following High Risk Discharge criteria are identified: None. Discharged to home ambulatory. Condition: good Condition: improved. Discharge instructions given to patient, Instructed on discharge instructions, follow up and referral plans. medication usage, no driving heavy equipment, Demonstrated understanding of instructions, medications, Pt was receptive of discharge instructions/ teaching. Prescriptions given X 3. CT Study completed. Property :Personal belongings accompany Pt. 23:43 Patient left the ED. slm Signatures: Dispatcher [employer] EDMS Soham Oconnor,RN RN ms2 Kendall, Sofi, Reg Reg gb Connei Carrillo zo Logan Herndon, WAY INSPECTOR WAY INSPECTOR dd6 Stefani Leung RN RN rs3 Maria Teresa Del Castillo, WAY INSPECTOR WAY INSPECTOR ar3 Jose Santana, RPA-C RPA-Cck7 Cecilia Barber LPN AIR DRILL OPERATOR slChloe Jaramillo, Carbon Capture Power Plant Operator Unit Pavithra Carpio RN RN ms18 Lakeshia Stein RN lf1 Corrections: (The following items were deleted from the chart) 18:26 18:20 BP 143 / 77; Pulse 101bpm; Resp 18bpm; Spontaneous; Pulse Ox 100% RA; 107.5 kg rs3 Reported; Height 5 ft. 10 in. Reported; BMI: 34.0; dd6 Chart Complete MTDD
--- NOTE | 2016-09-26 00:44 | EDDOCDS ---
Physician Documentation [facility] Name: Malini Javier Age: 35 yrs Sex: Female : 1980 Arrival Date: 09/23/2016 Time: 18:18 Bed I3 / M3 Private MD: CAIN Santana Disposition: 09/23/16 23:31 Discharged to Home/Self Care. Impression: Contusion of thorax, Contusion of abdominal wall, Contusion of right thigh. - Condition is Stable. - Discharge Instructions: Contusion. - Prescriptions for Ibuprofen 600 mg Oral Tablet - take 1 tablet by ORAL route every 6 hours As needed take with food; 30 tablet. Caliente 5- 325 mg Oral Tablet - take 1 tablet by ORAL route every 6 hours As needed MDD: 4 tabs; 16 tablet. Robaxin 500 mg Oral Tablet - take 2 tablet by ORAL route every 6 hours As needed; 40 tablet. - Work Release Form - 5 day, Medication Reconciliation, Local Pharmacy Hours form. - Follow up: CAIN Santana; When: 1 - 2 days; Reason: Recheck today's complaints, Continuance of care. - Problem is new. - Symptoms have improved. - Notes: PLEASE RETURN TO THE ER IF THE SYMPTOMS WORSEN OR BECOME CONCERNING, FOLLOW UP WITH YOUR DOCTOR IN 1-2 DAYS, USE MEDICATIONS INSTRUCTED Historical: - Allergies: no known allergies; - Home Meds: 1. none - PMHx: Supraventricular Tachycardia; - PSHx: internal defibrillator; right ankle surgery; Ureteral Stents; Uereteral stone extractions, ESWL; - Social history: Smoking status: Patient states was never smoker of tobacco. No barriers to communication noted, The patient speaks fluent Cape Verdean. - Family history: Not pertinent. - : The pt / caregiver states he / she is not on anticoagulants. Home medication list is obtained from the patient. - Exposure Risk Screening:: None identified. DENTAL DIRECTOR: 09/23 18:24 LMP N/A - control method rs3 Vital Signs: 18:20 BP 143 / 77; Pulse 101; Resp 18 S; Temp 99(T); Pulse Ox 100% on R/A; Weight 107.5 kg / rs3 237 lbs (R); Height 5 ft. 10 in. (177.80 cm) (R); 21:16 BP 118 / 73; Pulse 84; Resp 18; Temp 97.8; Pulse Ox 100% ; Pain 1/10; jlm 23:36 BP 115 / 68; Pulse 88; Resp 18; Temp 98.4; Pulse Ox 99% ; Pain 2/10; jlm 18:20 Body Mass Index 34.01 (107.50 kg, 177.80 cm) rs3 MDM: 20:10 IV Saline Lock ordered. ck7 20:11 morphine 4 mg IVP once ordered. ck7 20:11 Ondansetron 4 mg IVP once ordered. ck7 20:11 NS 0.9% 1000 ml IV at bolus once ordered. ck7 20:12 CBC with Diff Ordered. EDMS 20:12 MED Profile Ordered. EDMS 20:12 UA Ordered. EDMS 20:12 CT Chest With Contrast Ordered. EDMS 20:12 CT ABD & PELVIS: IV Contrast Only Ordered. EDMS 20:13 Femur Ordered. EDMS 20:22 Financial registration complete. zo 20:26 [facility] [place] [facility] [place] was scanned into [employer] and attached to record. zo 20:47 CBC with Diff Reviewed. ck7 20:52 MED Profile Reviewed. ck7 21:22 UA Reviewed. ck7 23:32 HYDROcodone-acetaminophen 4 pack- 5 mg-325 mg 1 packets PO Per package directions; ck7 Dispense with patient. 1 po q4h prn for pain ordered. 09/24 11:27 T-Sheet-- Draft Copy was scanned into [employer] and attached to record. gb 09/25 20:20 ED course: ft drum fp faxed formal report of ct abd/p for fu mlg. ml Administered Medications: 09/23 20:34 Drug: NS 0.9% 1000 ml [sodium chloride 0.9 % intravenous solution] Route: IV; Rate: ms2 bolus; Site: left antecubital; 23:43 Follow up: IV Status: Completed infusion slm 20:45 Drug: morphine 4 mg [morphine 4 mg/mL intravenous cartridge (1 mL)] Route: IVP; Site: ms18 left antecubital; 20:45 Drug: Ondansetron 4 mg Route: IVP; Site: left antecubital; ms18 23:42 Drug: HYDROcodone-acetaminophen 4 pack- 1 packets [hydrocodone 5 mg-acetaminophen 325 slm mg tablet (1 tabs)] {Co-Signature: lf1 (Lakeshia Stein RN).} Route: PO; Signatures: Dispatcher [employer] EDMS Nina Sanchez MD MD ml Barnhardt, Gloria, Connie De La Cruz Rosemary,RN RN rs3 Jose Santana, RPA-C RPA-Cck7 Cecilia Barber LPN LPN slm Sobkiewicz, Michele RN ms2 Pavithra Vang RN ms18 Lakeshia Stein RN lf1 The chart was reviewed and I authenticate all verbal orders and agree with the evaluation and treatment provided.Attachments: 20:26 [facility] Payment Agreement zo 09/24 11:27 T-Sheet-- Draft Copy gb Chart Complete MTDD
== END 2016-09-23 23:43 | disposition home or self-care (01) ==
LOC: M ED 18:18
DX: S30.1XXA Contusion of abdominal wall, initial encounter (principal); S20.211A Contusion of right front wall of thorax, initial encounter; S70.11XA Contusion of right thigh, initial encounter; W55.82XA Struck by other mammals, initial encounter; Y92.71 Barn as the place of occurrence of the external cause; Y93.89 Activity, other specified; Y99.8 Other external cause status; I47.1 Supraventricular tachycardia; Z95.810 Presence of automatic (implantable) cardiac defibrillator
CPT/HCPCS: 36415; 71260; 73552; 74177; 80048; 81001; 85025; 96361; 96374; 96375; 99284; J2405; Q9967

== ENCOUNTER → 2017-01-17 | Outpatient (REF) | payer BC, OTHER | LOC: M SFHCLERA 11:06 | PROVIDERS: ATTEND Nurse Practitioner Family | DX: J06.9 Acute upper respiratory infection, unspecified (principal) ==

== ENCOUNTER → 2017-04-16 | Outpatient (CLI) | payer BC, OTHER ==
--- NOTE | 2017-04-16 15:59 | REP ---
RIGHT SHOULDER, THREE VIEWS: HISTORY: Injury. There is no acute fracture or dislocation. The joint spaces are normal in appearance. IMPRESSION: There is no acute fracture or dislocation. Signed by Blaise Vasquez MD 04/16/2017 04:05 P
== END ==
LOC: M LRY 15:18
PROVIDERS: ATTEND Nurse Practitioner Family
DX: S49.91XA Unspecified injury of right shoulder and upper arm, initial encounter (principal); X58.XXXA Exposure to other specified factors, initial encounter; Y92.89 Other specified places as the place of occurrence of the external cause; Y93.89 Activity, other specified; Y99.8 Other external cause status

== ENCOUNTER → 2023-10-14 | Outpatient (CLI) | payer BC, OTHER | LOC: M WUC 10:57 | PROVIDERS: ATTEND Nurse Practitioner Family | DX: M25.551 Pain in right hip (principal) ==